=== PATIENT | female | born 1955 | race Caucasian/White ===

== ENCOUNTER → 2018-08-17 | Outpatient (CLI) | payer BC ==
[~2018-08-17] MED LIST: ALBU90OI INH; AMOX500 PO; CALCNI; CIPR500 PO; CITA20; CODGUAEL PO; ESTR1; LACT10SY PO; LORA1 PO; MEDR2.5; NAPR550 PO; OLME20; OXYACE5T PO; RXLORA1 PO; RXNAPNA550 PO; [UNRECOGNIZED DRUG - OTHER]
[2018-08-18 13:57] LABS: Stool Occult Bld Immuno 1 Negative (NEGATIVE)
== END | disposition home or self-care (01) ==
LOC: LAB 06:50 → LAB SHORT 06:50 → LAB FUT 06-29 14:20
PROVIDERS: Family Medicine
DX: Z12.11 Encounter for screening for malignant neoplasm of colon (principal); E11.9 Type 2 diabetes mellitus without complications; E05.90 Thyrotoxicosis, unspecified without thyrotoxic crisis or storm; I10 Essential (primary) hypertension
CPT/HCPCS: G0328

== ENCOUNTER → 2019-08-17 | Outpatient (CLI) | payer BC ==
[2019-08-17 14:23] LABS: Stool Occult Bld Immuno 1 Negative (NEGATIVE)
== END ==
LOC: LAB SHORT 13:06 → OLS 13:06 → LAB FUT 08-07 14:40 → EDSTATUS 08-07 14:40
PROVIDERS: Family Medicine
DX: Z12.11 Encounter for screening for malignant neoplasm of colon (principal)
CPT/HCPCS: G0328